=== PATIENT | female | born 1985 | race African-American/Black ===

== ENCOUNTER 2021-12-17 17:18 | Emergency (ER) | payer BC, OTHER ==
[~2021-12-17] VITALS: Ht 160 cm; Wt 88.6 kg
[2021-12-17 17:50] VITALS: BP 101/54
[2021-12-18] MEDS ORDERED: NITR-87 PO (09:46)
== END 2021-12-17 21:49 | disposition left against medical advice (07) ==
LOC: ER 17:18
DX: O26.851 Spotting complicating pregnancy, first trimester (principal); Z3A.14 14 weeks gestation of pregnancy; Z53.21 Procedure and treatment not carried out due to patient leaving prior to being seen by health care provider

== ENCOUNTER 2021-12-18 08:13 | Emergency (ER) | payer BC ==
[~2021-12-18] VITALS: Ht 160 cm; Wt 88.7 kg
[2021-12-18 08:43] LABS: Urine Bacteria FEW /hpf (None Seen); Urine Blood 3+ /uL (Negative); Urine Budding Yeast OCCASIONAL /hpf (None Seen); Urine Mucus FEW (None Seen); Urine WBC 38 /hpf (0 - 5)
[2021-12-18 09:43] VITALS: BP 112/71
[2021-12-18] MEDS ORDERED: NITR-87 PO (09:46)
== END 2021-12-18 09:53 | disposition home or self-care (01) ==
LOC: ER 08:13
DX: O20.0 Threatened abortion (principal); O23.41 Unspecified infection of urinary tract in pregnancy, first trimester; Z3A.12 12 weeks gestation of pregnancy
CPT/HCPCS: 76801; 81001

== ENCOUNTER 2023-04-15 05:25 | Day surgery (SDC) | payer MEDICAID, OTHER ==
[~2023-04-15] VITALS: Ht 167.6 cm; Wt 77.2 kg
[~2023-04-15 05:25] MED LIST: NITR-87 PO
[2023-04-15 06:10] VITALS: PULSE 76; RESP 16; O2SAT 99
[2023-04-15 06:15] LABS: Basophils # (auto) 0 10 ^3/uL (0-0.2); Eosinophils # (auto) 0.1 10 ^3/uL (0-0.8); Monocytes # (auto) 0.4 10 ^3/uL (0-1.3)
[2023-04-15 06:18] LABS: Basophils % (auto) 0.4 % (0.0-2.0); Hematocrit 24.9 % (36.0-46.0); Lymphocytes # (auto) 1.3 10 ^3/uL (0.4-5.4); Mean Corpuscular Hemoglobin 22.7 pg (28.0-32.0); Mean Corpuscular Volume 70.9 fL (80.0-100.0); Monocytes % (auto) 9.1 % (0.0-12.0); Neutrophils # (auto) 2.5 10 ^3/uL (1.6-8.6); Neutrophils % (auto) 57.5 % (37.0-80.0); Red Blood Cells 3.52 10^6/uL (4.0-5.20); Red Cell Distribution Width 16.2 % (11.8-14.3); White Blood Cell 4.4 10^3/uL (4.4-10.8)
[2023-04-15 06:24] LABS: Alanine Aminotransferase 12 U/L (7-40); Albumin 3.7 g/dL (3.2-4.8); Alkaline Phosphatase 67 U/L (46-116); Anion Gap 8 (5-15); Aspartate Aminotransferase 12 U/L (13-40); BUN/Creatinine Ratio 10.5 (10.0-20.0); Blood Urea Nitrogen 8 mg/dL (9-23); Calcium 8.2 mg/dL (8.5-10.1); Carbon Dioxide 23 mmol/L (20-30); Chloride 109 mmol/L (98-107); Glucose 118 mg/dL (74-106); Sodium 140 mmol/L (136-145)
[2023-04-15 06:25] LABS: Bilirubin, Total 0.5 mg/dL (0.2-1.0); Total Protein 5.9 g/dL (5.7-8.2)
[2023-04-15 07:42] VITALS: PULSE 68; RESP 20; O2SAT 98
[2023-04-15] MEDS ORDERED: ACETAMINOPHEN 325 MG TAB PO ONE (08:00)
[2023-04-15] MEDS ORDERED: LACT. RINGERS/OXYTOCIN 20UNITS 1,000 ML IV ONE ×2 (10:00)
[2023-04-15] MEDS ORDERED: fentaNYL CITRATE 100 MCG/2 ML VL ONE ×2 (10:34→10:40)
[2023-04-15] MEDS ORDERED: MEPERIDINE HCL (25 MG/ML) 1ML VIAL ONE (10:34)
[2023-04-15] MEDS ORDERED: SODIUM CHLORIDE LOCK 10 ML ONE ×2 (10:35→10:38)
[2023-04-15] MEDS ORDERED: PROPOFOL 10 MG/ML 20 ML IV ONE (10:35)
[2023-04-15] MEDS ORDERED: ONDANSETRON HCL 4 MG/2 ML VIAL ONE (10:35)
[2023-04-15] MEDS ORDERED: MIDAZOLAM HCL 2MG/2ML 2ml VIAL (1mg/ml) ONE (10:35)
[2023-04-15] MEDS ORDERED: ceFAZolin 2 GM/D5W100ml 100 ML IV ONE (10:44)
[2023-04-15] MEDS ORDERED: HYDROmorphone HCL 2 MG/ML VL/or syr IV PRN ×2 (10:45)
[2023-04-15] MEDS ORDERED: METOCLOPRAMIDE HCL 5MG/ml INJ 2ml VIAL IV PRN (10:45)
[2023-04-15] MEDS ORDERED: MORPHINE SULFATE INJ 2 MG/ml SYRG IV PRN (10:45)
[2023-04-15 11:20] LABS: INR 1.09 (0.9-1.15); Partial Thromboplastin Time < 20.0 SEC (24.5-34.5); Prothrombin Time 11.4 sec (9.3-11.8)
[2023-04-15 11:21] VITALS: O2SAT 100
[2023-04-15] MEDS ORDERED: RHO (D) IMMUNE GLOBULIN 300 MCG INJ IM PRN (11:30)
[2023-04-15 12:36] VITALS: TEMP 98
[2023-04-15 13:22] LABS: Basophils # (auto) 0 10 ^3/uL (0-0.2); Eosinophils # (auto) 0 10 ^3/uL (0-0.8); Lymphocytes # (auto) 0.9 10 ^3/uL (0.4-5.4); Monocytes # (auto) 0.2 10 ^3/uL (0-1.3); Nucleated Red Blood Cells % 0.1 %; White Blood Cell 7.6 10^3/uL (4.4-10.8)
[2023-04-15 13:23] LABS: Basophils % (auto) 0.3 % (0.0-2.0); Eosinophils % (auto) 0.4 % (0.0-7.0); Hematocrit 27.6 % (36.0-46.0); Hemoglobin 8.6 g/dL (12.2-16.2); Lymphocytes % (auto) 12.3 % (10.0-50.0); Mean Corpuscular Hemoglobin 24.1 pg (28.0-32.0); Mean Corpuscular Hgb Conc. 31.3 g/dL (32.0-36.0); Mean Corpuscular Volume 76.9 fL (80.0-100.0); Neutrophils # (auto) 6.4 10 ^3/uL (1.6-8.6); Red Blood Cells 3.58 10^6/uL (4.0-5.20); Red Cell Distribution Width 18.4 % (11.8-14.3)
[2023-04-15 13:36] VITALS: BP 131/74; PULSE 68; RESP 13; O2SAT 98
== END 2023-04-15 14:52 | disposition home or self-care (01) ==
LOC: EDBD 05:25 → ER 05:25 → EDUNIT# 05:25 → SUR 10:00
PROVIDERS: ATTEND Obstetrics & Gynecology
DX: O03.4 Incomplete spontaneous abortion without complication (principal); Z98.891 History of uterine scar from previous surgery; D64.9 Anemia, unspecified
CPT/HCPCS: 36415; 59812; 76801; 76817; 80053; 84702; 85025; 85610; 85730; 86850; 86900; 86901; 86920; 88305; 99285; J2175; J2250; J2405; J2590; J2704; J3010; P9016

== ENCOUNTER 2023-10-25 21:12 | Emergency (ER) | payer MEDICAID ==
[~2023-10-25] VITALS: Ht 160 cm; Wt 91.5 kg
[2023-10-25 21:34] VITALS: BP 111/78; PULSE 80; RESP 16; O2SAT 98
[2023-10-25 21:44] LABS: Urine Bacteria None Seen /hpf (None Seen)
[2023-10-25 21:53] LABS: Urine Blood Negative /uL (Negative); Urine Clarity Clear (Clear); Urine Color Light-Yellow (Yellow); Urine Mucus FEW (None Seen); Urine Protein, UAD Negative (Negative); Urine Specific Gravity 1.018 (1.001-1.035); Urine Urobilinogen Normal (Negative); Urine WBC 1 /hpf (0 - 5); Urine pH 5.5 (5.0-9.0)
== END 2023-10-26 01:57 | disposition left against medical advice (07) ==
LOC: ER 21:12
DX: R30.9 Painful micturition, unspecified (principal); R30.0 Dysuria; Z53.21 Procedure and treatment not carried out due to patient leaving prior to being seen by health care provider
CPT/HCPCS: 81001

== ENCOUNTER 2024-10-20 06:22 | Day surgery (SDC) | payer BC, MEDICAID ==
--- NOTE | 2024-10-17 13:08 | DVHHP ---
ADMIT DATE: 10/20/2024 CHIEF COMPLAINT: Desires tubal sterilization. HISTORY OF PRESENT ILLNESS: The patient is a 39-year-old 12, para 4, admitted for laparoscopic tubal sterilization. The patient has a history of uterine rupture with her last . Subsequently, patient is requesting bilateral salpingectomy. The patient is worried about having another uterine rupture and failed tubal sterilization. Risks, complications, indications and alternatives discussed with the patient. The patient was advised that we will proceed with bilateral salpingectomy; however, there is a possibility in the event of severe adhesion, scars, small tube remnant that she may not achieve this and may have to put Filshie clips. The patient fully understands. PAST MEDICAL HISTORY: None. PAST SURGICAL HISTORY: D and C, . SOCIAL HISTORY: None. FAMILY HISTORY: Positive for diabetes. ALLERGIES: No known drug allergies. OBSTETRIC AND GYNECOLOGIC HISTORY: Three normal vaginal deliveries, one , eight miscarriages. REVIEW OF SYSTEMS: Consistent with HPI. PHYSICAL EXAMINATION: VITAL SIGNS: Stable, afebrile. HEENT: Within normal limits. CARDIOVASCULAR: Regular rate and rhythm. LUNGS: Clear to auscultation. BREASTS: Symmetrical. No masses. ABDOMEN: Soft, nontender. PELVIC: External genitalia within normal limits. Vagina normal. Cervix grossly normal appearing. Uterus, 8 weeks' size. Adnexa nonpalpable. EXTREMITIES: No clubbing, cyanosis or edema. IMPRESSION: * Multiparity. * Desires bilateral tubal stabilization. * History of section with uterine rupture. PLAN: Laparoscopy, possible bilateral salpingectomy, possible exploratory laparotomy, possible removal of bilateral tubes versus placement of Filshie clips. Informed consent obtained. Risks, complications and failure discussed with the patient. All questions answered. The patient fully understands. She wishes to proceed with the planned procedure. DO ANJALI Umana/HELGA TID: [id number] RECEIPT: [id number]
[2024-10-18 09:37] LABS: Urine Bacteria None Seen /hpf (None Seen)
[2024-10-18 09:56] LABS: Urine Blood 3+ /uL (Negative); Urine Clarity Turbid (Clear); Urine Protein, UAD Negative (Negative); Urine Specific Gravity 1.017 (1.001-1.035); Urine Squamous Epithelial Cell FEW /hpf (<5); Urine Urobilinogen Normal (Negative); Urine WBC 4 /HPF (0-5); Urine pH 5.5 (5.0-9.0)
[2024-10-18 09:57] LABS: Urine Color Yellow (Yellow)
[2024-10-18 10:05] LABS: Alanine Aminotransferase 19 U/L (7-40); Albumin 4.4 g/dL (3.2-4.8); Alkaline Phosphatase 86 U/L (46-116); Anion Gap 8 (5-15); Aspartate Aminotransferase 19 U/L (13-40); Basophils # (auto) 0 10 ^3/uL (0-0.2); Basophils % (auto) 0.5 % (0.0-2.0); Bilirubin, Total 0.6 mg/dL (0.2-1.0); Blood Urea Nitrogen 9 mg/dL (9-23); Calcium 9.4 mg/dL (8.7-10.4); Carbon Dioxide 26 mmol/L (20-31); Chloride 106 mmol/L (98-107); Eosinophils # (auto) 0.2 10 ^3/uL (0-0.8); Eosinophils % (auto) 3.6 % (0.0-7.0); Glucose 98 mg/dL (74-106); Hematocrit 34.9 % (36.0-46.0); Hemoglobin 11.3 g/dL (12.2-16.2); Lymphocytes # (auto) 1.5 10 ^3/uL (0.4-5.4); Lymphocytes % (auto) 26.8 % (10.0-50.0); Mean Corpuscular Hemoglobin 21.8 pg (28.0-32.0); Mean Corpuscular Hgb Conc. 32.2 g/dL (32.0-36.0); Mean Corpuscular Volume 67.7 fL (80.0-100.0); Monocytes # (auto) 0.5 10 ^3/uL (0-1.3); Monocytes % (auto) 9.1 % (0.0-12.0); Neutrophils # (auto) 3.4 10 ^3/uL (1.6-8.6); Nucleated Red Blood Cells % 0.1 %; Platelet Count (auto) 294 10^3/uL (140-450); Potassium 4.2 mmol/L (3.5-5.1); Red Blood Cells 5.15 10^6/uL (4.0-5.20); Red Cell Distribution Width 17.5 % (11.8-14.3); Sodium 140 mmol/L (136-145); Total Protein 7.2 g/dL (5.7-8.2); White Blood Cell 5.6 10^3/uL (4.4-10.8)
[2024-10-18 10:12] LABS: INR 1.03 (0.9-1.15); Partial Thromboplastin Time 31.1 SEC (24.5-34.5); Prothrombin Time 10.9 sec (9.3-11.8)
[~2024-10-20] VITALS: Ht 162.6 cm; Wt 90.7 kg
[2024-10-20] MEDS ORDERED: BUPIVACAINE HCL 0.25% P/F 10 ML VIAL ONE (06:32)
[2024-10-20] MEDS ORDERED: LIDOCAINE W/ EPINEPHRINE 1% 20ML VIAL ONE (06:32)
[2024-10-20] MEDS ORDERED: LIDOCAINE 2%HCL (LOCAL ANESTH.) INJ 10ml MDV ONE (06:52)
[2024-10-20] MEDS ORDERED: ONDANSETRON HCL 4 MG/2 ML VIAL IV PRN ×2 (07:00→08:15)
[2024-10-20] MEDS ORDERED: CELECOXIB 100 MG CAP ONE (07:00)
[2024-10-20] MEDS ORDERED: LACTATED RINGER'S 1,000 ML IV SCH (07:00)
[2024-10-20] MEDS ORDERED: GABAPENTIN 300 MG CAP ONE (07:01)
[2024-10-20] MEDS ORDERED: ACETAMINOPHEN IV 100 ML IV ONE (07:01)
[2024-10-20] MEDS ORDERED: HYDR-4072 PO (07:02)
[2024-10-20] MEDS ORDERED: ZOFR4T PO (07:02)
[2024-10-20] MEDS ORDERED: IBUP-1456 PO (07:02)
[2024-10-20] MEDS ORDERED: LIDOCAINE 2% (LOCAL ANESTH.) PF 5ml SDV ONE ×2 (07:04→08:00)
[2024-10-20] MEDS ORDERED: PROPOFOL 10 MG/ML 20 ML IV ONE (07:04)
[2024-10-20] MEDS ORDERED: KETOROLAC TROMETH 30 MG/ML 1ML VIAL ONE (07:04)
[2024-10-20] MEDS ORDERED: ROCURONIUM 10MG/ML 10ML VIAL IV ONE (07:04)
[2024-10-20] MEDS ORDERED: DexAMETHasone SOD PHOS 10MG/1ML VIAL INJ ONE (07:04)
[2024-10-20] MEDS ORDERED: GLYCOPYRROLATE 0.2 MG/ML 1ML VIAL ONE (07:04)
[2024-10-20] MEDS ORDERED: SUGAMMADEX 200mg/2ml Vial (100MG/ML) IV ONE (07:04)
[2024-10-20] MEDS ORDERED: ONDANSETRON HCL 4 MG/2 ML VIAL ONE (07:04)
[2024-10-20] MEDS: CELECOXIB 100 MG CAP PO ONE (07:05)
[2024-10-20] MEDS ORDERED: KETAMINE 50mg/ML 1ml syringe ONE (07:05)
[2024-10-20] MEDS ORDERED: fentaNYL CITRATE 100 MCG/2 ML VL ONE (07:05)
[2024-10-20] MEDS: ACETAMINOPHEN IV 1000 MG/100ML (10MG/ML) IV ONE (07:05)
[2024-10-20] MEDS: GABAPENTIN 300 MG CAP PO ONE (07:05)
[2024-10-20] MEDS ORDERED: LIDOCAINE HCL 2% TOP JELLY 5ML TOP ONE (07:14)
[2024-10-20 08:10] VITALS: PULSE 103; RESP 16; O2SAT 99
[2024-10-20] MEDS ORDERED: NALOXONE HCL 0.4 MG/ML VIAL IV PRN (08:15)
[2024-10-20] MEDS ORDERED: ePHEDrine SULFATE 50 MG/ML AMP IV PRN (08:15)
[2024-10-20] MEDS ORDERED: FLUMAZENIL 0.1 MG/ML INJ 10ML MDV IV PRN (08:15)
[2024-10-20] MEDS ORDERED: fentaNYL CITRATE 100 MCG/2 ML VL IV PRN (08:15)
[2024-10-20] MEDS ORDERED: hydrALAZINE HCL 20 MG/ML VL IV PRN (08:15)
[2024-10-20] MEDS ORDERED: oxyCODONE HCL 5MG TAB PO PRN (08:15)
[2024-10-20] MEDS ORDERED: HYDROmorphone HCL 2 MG/ML VL/or syr ONE (08:32)
[2024-10-20] MEDS: HYDROmorphone HCL 2 MG/ML VL/or syr IV PRN (08:35)
[2024-10-20 10:20] VITALS: BP 135/89; PULSE 70; RESP 11; O2SAT 100
--- NOTE | 2024-10-20 13:09 | POSTOP ---
Post-Operative Note Post-Operative Note Preop Diagnosis desires bilat salpingectomy for sterilization Postop Diagnosis: DESIRES TUBAL,same Operation performed laparoscopic bilateral salpingectomy Specimen bilat tubes Anesthesia: General Anesthesiologist: lexx young Blood Loss(fluid mgmt) 10ml Surgeon Zaida Flaherty Medical Terminologist chris Implant clips,anupama Complications & Mgmt none Date 10/20/24 Time 13:07 Visit Coding OBGYN Date of Service: Oct 20, 2024 Billing Provider: ZAIDA FLAHERTY DO BR[employer] CLIPPER Common Visit Codes: [id number] OBS CARE (HIGH) BR[employer] BR[employer] CLIPPER Procedure Codes: 99570-PHK.SURG:W/REM ADNEXAL STRUCT ZAIDA FLAHERTY DO Oct 20, 2024 13:09
--- NOTE | 2024-10-20 14:10 | DVHOP2 ---
Operative Report DATE OF OPERATION: 10/20/24 PREOPERATIVE DIAGNOSES: 1. Desires elective tubal sterilization.desires bilat salpingectomy . POSTOPERATIVE DIAGNOSES: 1. same SURGEON: Zaida Flaherty D.O./chris ANESTHESIOLOGIST: lexx TYPE OF ANESTHESIA : General. CONSENT: The patient was informed of the risks and benefits of the procedure. The patient was informed of the risks and benefits of the procedure. These include but are not limited to , complications of anesthesia, postoperative infection, incomplete relief of symptoms, recurrence of symptoms, damage to blood vessels, nerves and tendons, deep venous thrombosis, pulmonary embolism and possible need for repeat surgery in the future. FINDINGS: Cervix is grossly normal appearing. Uterus is 8 weeks' size. Adnexa nonpalpable. COMPLICATIONS: None.bilat tubes sent to pathology BLOOD PRODUCTS USED: None. PROCEDURES: Laparoscopic bilateral salpingectomy PROCEDURE IN DETAIL: The patient was taken to the operating room where she was placed under general anesthesia. The patient was then prepped and draped in the usual sterile manner in the dorsal lithotomy position. The bladder was emptied using a straight catheter. Examination under anesthesia revealed the above findings. A weighted speculum was placed in the vagina. The anterior lip of the cervix was grasped using single-tooth tenaculum. Cervix was dilated. Uterus sounded to 10 cm. HUMI catheter was placed. Attention was then turned to the abdomen where a Veress needle was introduced. Abdomen was distended with 3L of CO2 gas. Using Visiport, abdomen was entered under direct visualization. Survey of abdominal cavity revealed normal finding. A 8 mm trocar was placed into the suprapubic region. a 12mm trocar was place don left lateral aspect ofv abdomen 4 cm away from umbilical region ,anupama stapler was then introduced and both tubes were excised via anupama stapler successfully.. No bleeding was noted. All the instruments were removed from the abdomen and pelvis. CO2 gas released. Incisional ports were closed using #4-0 Vicryl and gabino for the larger port. The patient tolerated the procedure well. All instruments were removed from the patient's cervix. The patient was taken to the recovery room in a stable condition. ESTIMATED BLOOD LOSS: 20 mL Visit Coding OBGYN Date of Service: Oct 20, 2024 Billing Provider: ZAIDA FLAHERTY DO HOUSE RN Common Visit Codes: 95317-[id number] OBS CARE (HIGH) HOUSE RN Procedure Codes: 31058-SDY.SURG:W/REM ADNEXAL STRUCT ZAIDA FLAHERTY DO Oct 20, 2024 14:10
--- NOTE | 2024-10-20 14:11 | DVHDS2 ---
Physician Discharge Progress N Final Diagnosis: DESIRES bilat salpingectomy Operations or Procedures: Operations or Procedures laparoscopic bilateral salpingectomy Condition on Discharge: Good Disposition: Home Discharge Instructions: Diet: Regular Activity: Light activity Follow Up/Referral: WED AT 10AM Medications: SOFI JIMENEZ MOTRIN Follow Up Care: Specialist: next wed Discharge Statement: "Patient was advised to return to the ER or call 911 if any headaches, dizziness, shortness of breath, chest pain, abdominal pain, bleeding, fevers, or worsening of medical condition. Patient was counseled about treatment plan, medications, possible side effects, patientverbalized understanding. All questions were answered to the best of my ability. This discharge took greater then 30 minutes in planning, reviewing documentation, counseling the patient, and discussing with other team members." Visit Coding OBGYN Date of Service: Oct 20, 2024 Billing Provider: ISABEL ARVIZU DO CONSTRUCTION SALES REPRESENTATIVE Common Visit Codes: [id number] INP/OBS CARE(HIGH), 47460-DQB/OBS DISCH DAY >30MIN ISABEL ARVIZU DO Oct 20, 2024 14:11
== END 2024-10-20 10:22 | disposition home or self-care (01) ==
LOC: SUR 06:22
PROVIDERS: ATTEND Obstetrics & Gynecology
DX: Z30.2 Encounter for sterilization (principal); E66.9 Obesity, unspecified; Z68.34 Body mass index [BMI] 34.0-34.9, adult; Z79.899 Other long term (current) drug therapy; Z98.891 History of uterine scar from previous surgery; Z98.890 Other specified postprocedural states
CPT/HCPCS: 36415; 58661; 80053; 81001; 81025; 84702; 85025; 85610; 85730; 86850; 86900; 86901; 88305; J1100; J1171; J1885; J2003; J2405; J2704; J3010; J3490; J0131